=== PATIENT | male | born 2005 | race Caucasian/White ===

== ENCOUNTER 2025-07-04 12:38 | Inpatient (IN) | payer BC ==
[2025-07-04] MEDS: Ondansetron 4 MG/2 ML SDV IVPUSH ONE ×2 (12:58→16:27)
[2025-07-04] MEDS ORDERED: Sodium Chloride 0.9% 10 ML Syringe FLUSH PRN (13:01)
[2025-07-04 13:15] LABS: BASOPHILS PERCENT AUTO 0.3 % (0.0-1.0); EOSINOPHILS PERCENT AUTO 0.0 % (1.0-3.0); LYMPHOCYTES PERCENT AUTO 6.6 % (20.5-50.1); MONOCYTES PERCENT AUTO 10.3 % (2-8); NEUTROPHILS PERCENT AUTO 82.8 % (42.2-75.2); PLATELET COUNT,PLT 276 10^3/uL (150-450); RED BLOOD CELL COUNT 4.46 10^6/uL (4.6-6.2); WHITE BLOOD CELL COUNT,WBC 18.5 10^3/uL (5.0-10.0)
[2025-07-04 13:20] LABS: INR 1.1 (0.9-1.2); PTT,PARTIAL THROMBOPLSTIN TIME 30.1 SEC (22.0-34.0)
[2025-07-04 13:26] LABS: A/G RATIO 1.0; ALANINE AMINOTRANSFERASE,ALT 37 U/L (16-63); ASPARTATE AMNIOTRANSFERASE,AST 20 U/L (15-37); BILIRUBIN TOTAL 0.8 mg/dL (0.2-1.0); BLOOD UREA NITROGEN,BUN 13 mg/dL (7-18); CARBON DIOXIDE,CO2 26 mmol/L (21-32); CREATININE 1.20 mg/dL (0.70-1.30); EST CRCL DRUG DOSING (CG) 103.83 mL/min; GLUCOSE RANDOM 114 mg/dL (70-99); POTASSIUM,K 3.6 mmol/L (3.5-5.1); PROTEIN TOTAL,TP 7.3 g/dL (6.4-8.2)
[2025-07-04 13:27] LABS: LACTIC ACID 1.2 mmol/L (0.4-2.0)
[2025-07-04 13:30] LABS: CHLORIDE,CL 96 mmol/L (98-107); SODIUM,NA 133 mmol/L (136-145)
[2025-07-04 13:36] LABS: APPEARANCE,URINE CLEAR (CLEAR); GLUCOSE,URINE NEGATIVE (NEGATIVE); OCCULT BLOOD,URINE NEGATIVE (NEGATIVE)
[2025-07-04 13:45] LABS: ESTIMATED GFR 88 mL/min (>=60)
[2025-07-04 13:46] LABS: MONONUCLEOSIS SCREEN NEGATIVE
[2025-07-04 13:52] LABS: EPITHELIAL CELLS,URINE RARE /HPF (NOT SEEN)
[2025-07-04] MEDS: Ketorolac 30 MG/ML SDV IVPUSH ONE (16:30)
[2025-07-04 16:47] LABS: PROTEIN,CSF 37 mg/dL (15-45)
[2025-07-04] MEDS: Dexamethasone 4 MG/ML SDV IVPUSH ONE (17:00)
[2025-07-04 18:13] LABS: APPEARANCE CSF CLEAR; COLOR,CSF COLORLESS; SUPERNATANT APPEAR,CSF NO XANTHOCHROMIA; TUBE NUMBER,CSF 4; TUBE VOLUME,CSF 1.5; WBC,CSF 6
[2025-07-04 18:14] LABS: RBC,CSF 12
[2025-07-04 18:40] LABS: T4 FREE 1.28 ng/dL (0.76-1.46); TSH ULTRASENSITIVE 0.2 uIU/mL (0.36-3.74)
[2025-07-04] MEDS ORDERED: Ondansetron 4 MG Tab.DIS PO PRN (19:31)
[2025-07-04] MEDS: Heparin Sodium 5,000 Units/ML Vial SUBCUT SCH (21:34)
[2025-07-05] MEDS: D5 1/2 NS w/ 10 mEq/L KCl 1,000 ML IV SCH (00:19)
[2025-07-05 06:31] LABS: BASOPHILS PERCENT AUTO 0.1 % (0.0-1.0); EOSINOPHILS PERCENT AUTO 0.1 % (1.0-3.0); LYMPHOCYTES PERCENT AUTO 6.9 % (20.5-50.1); MONOCYTES PERCENT AUTO 6.8 % (2-8); NEUTROPHILS PERCENT AUTO 86.1 % (42.2-75.2); PLATELET COUNT,PLT 233 10^3/uL (150-450); RED BLOOD CELL COUNT 4.11 10^6/uL (4.6-6.2); WHITE BLOOD CELL COUNT,WBC 15.0 10^3/uL (5.0-10.0)
[2025-07-05 06:49] LABS: BLOOD UREA NITROGEN,BUN 14.0 mg/dL (7-18); CARBON DIOXIDE,CO2 27.0 mmol/L (21-32); CHLORIDE,CL 105.0 mmol/L (98-107); CREATININE 1.1 mg/dL (0.70-1.30); EST CRCL DRUG DOSING (CG) 114.63 mL/min; GLUCOSE RANDOM 178.0 mg/dL (70-99); POTASSIUM,K 4.4 mmol/L (3.5-5.1); SODIUM,NA 140.0 mmol/L (136-145)
[2025-07-05 06:53] LABS: ESTIMATED GFR 98.0 mL/min (>=60)
[2025-07-08 05:46] LABS: WEST NILE AB, SERUM 0.01 IV (<=0.89)
[2025-07-08 05:46] LABS: LYME VLSE1/PEPC10 ABS, ELISA 0.13 IV (<=0.90)
[2025-07-09 21:43] LABS: VDRL, CSF Non Reactive (Non Reactive)
== END 2025-07-05 12:12 | disposition home or self-care (01) | DRG 720 ==
LOC: DL.ED 12:38 → DL.MS 18:42 → UNDOADMIN 18:42
PROVIDERS: ADMIT Internal Medicine; ATTEND Internal Medicine
DX: A41.89 Other specified sepsis (principal); N17.9 Acute kidney failure, unspecified; E86.0 Dehydration; R73.9 Hyperglycemia, unspecified; A69.20 Lyme disease, unspecified; Z88.8 Allergy status to other drugs, medicaments and biological substances; Z79.899 Other long term (current) drug therapy
CPT/HCPCS: 36415; 70450; 71046; 80048; 80053; 80202; 81001; 82945; 83036; 83605; 83735; 84145; 84157; 84439; 84443; 84484; 85025; 85610; 85730; 86140; 86308; 86592; 86618; 86788; 87040; 87070; 87081; 87205; 87428-QW; 87430; 87483; 89050; 93005; 99223; 99239; A9270-GY; J0696; J1100; J1885; J2405; J3360; J3373; J3374; J3480; J7030; J7050